=== PATIENT | female | born 1960 | race Caucasian/White ===

== ENCOUNTER 2017-07-10 08:28 | Emergency (ER) | END 2017-07-10 09:08 | disposition home or self-care (01) ==

== ENCOUNTER 2018-10-30 15:35 | Emergency (ER) | payer BC ==
[~2018-10-30] VITALS: Ht 167.6 cm; Wt 96.5 kg
[~2018-10-30 15:35] MED LIST: CEPH-443 PO; CLIN300C10 PO; FLUC150T PO; HC30CR25 TOP; IBUP-1542 PO; IBUP-1561 PO; NAPR-985 PO; PRED20TA PO
[2018-10-30 15:48] VITALS: Ht 167.6 cm; Wt 96.5 kg
== END 2018-10-30 17:08 | disposition home or self-care (01) ==
LOC: FTE 15:35
DX: L02.416 Cutaneous abscess of left lower limb (principal); L03.116 Cellulitis of left lower limb
CPT/HCPCS: 99283